=== PATIENT | male | born 1990 | race Caucasian/White ===

== ENCOUNTER 2016-10-03 11:19 | Emergency (ER) | payer SELFPAY ==
[2016-10-03] MEDS ORDERED: FLUORESCEIN SODIUM 1 MG APP OD ONE (11:52)
[2016-10-03] MEDS ORDERED: PROPARACAINE 0.5% OPHTH SOLN 15 ML BOTTLE OD ONE (11:52)
[2016-10-03 11:58] VITALS: BP 130/60; PULSE 88; TEMP 97.5; BMI 22.7
[2016-10-03] MEDS ORDERED: GENTAMICIN 0.3% OPHTH SOLN 5 ML BOTTLE OD ONE (12:33)
--- NOTE | 2016-10-03 12:35 | EDPRACDOC ---
- General Information Chief Complaint: Eye Problems Stated Complaint: foreign body eye Time Seen by Provider: 10/03/16 12:14 Information Source: Patient Mode Of Arrival: Car Home Medications: Home Medications Amoxicillin/Clavulanate Potas. [Augmentin] 875 mg PO BID #20 tab 11/15/14 Hydrocodone Bit/Acetaminophen [Hydrocodon-Acetaminophen 5-325] 1 - 2 tab PO Q6H PRN #20 tab 11/15/14 Hydrocodone Bit/Acetaminophen [Albert Lea 5-325 Tablet] 1 each PO Q4H #20 tab Meloxicam [Mobic] 7.5 mg PO BID #20 tab 10/03/16 Allergies/Adverse Reactions: Allergies Allergy/AdvReac Type Severity Reaction Status Date / Time No Known Allergies Allergy Verified 11/15/14 16:16 - History of Present Illness Onset: yesterday HPI: PT PRESENTS TODAY WITH FB TO RIGHT EYE THAT OCCURRED LAST NIGHT. 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 NO OTHER INJURY. NO FEVER/ DISCHARGE. Foreign Body Context: Reports: Injury Foreign Body: Other (METAL) Location of Possible Foreign Body: EYE Removal: Successful Pain Severity: Moderate Shortness of breath: None Associated Signs & Symptoms: Reports: None ED Past Medical History - History Reviewed Yes Nurses notes reviewed and agree except as marked - Social Medical History Smoking Status: Heavy tobacco smoker (5 or more cigarettes/day or daily pipe/ cigar) EDM Review of Systems - Review of Systems ROS Negative Except as Marked: Yes All systems reviewed and were negative except as marked Constitutional: No Symptoms Reported Eyes: Blurred Vision, Pain, Redness, Other (FB) Ears: No Symptoms Reported Throat: No Symptoms Reported Nose: No Symptoms Reported Respiratory: No Symptoms Reported Cardiovascular: No Symptoms Reported Gastrointestinal: No Symptoms Reported Neurological: No Symptoms Reported Musculoskeletal: No Symptoms Reported Integumentary: No Symptoms Reported - Physical Exam Constitutional: Alert (Awake), No apparent distress Oriented to: Time, Person, Place Last recorded Vital Signs: Last Vital Signs Temp 97.5 F 10/03/16 11:57 Pulse 88 10/03/16 11:57 Resp 18 10/03/16 11:57 BP 130/60 10/03/16 11:57 Pulse Ox 97 10/03/16 11:57 Oxygen Pulse Oxygen Saturation 97 O2 Device Oxygen Flow Rate Fraction of Inspired Oxygen ( FIO2) - HEENT Head: Normal Eye Exam: Other (NOTED METAL PIECE IN CENTER OF RIGHT EYE; PERRL; EOMI;) Oropharynx: Normal Tympanic Membrane: Normal ENT EAC: Normal Nose: No Symptoms Reported Neck: Normal, Denies Pain, Midline - Respiratory/Cardiovascular Respiratory: Normal - CTA Cardiovascular: Normal - GI Palpation: Normal Tenderness: Non tender - Musculoskeletal Back: Normal Extremities: Normal - Integumentary Skin: Normal Lymphatics: Normal - Neurologic Cerebellar: Normal Mood Description: Normal Thought: Coherent Perception: Normal ED Procedures - Foreign Body Removal Informed of risks, benefits and alternatives described: Yes Informed Consent Signed: Verbal Possible Foreign Body Removal from: Other (EYE) Topical Medications: Other (PROPARICAINE) Foreign Body removal attempted using: Manual Extraction Removal Attempt aided by: Other (18 GAUGE NEEDLE) Removal Attempt was: Successfully Removed, FB Indentified Post-procedure exam: Abrasion (CORNEAL ABRASION) Decision Time to Discharge: 12:34 - Departure Disposition: Home Condition: Good Final Diagnosis: Foreign body in eye Qualifiers: Encounter type: initial encounter Laterality: right Qualified Code(s): T15.91XA - Foreign body on external eye, part unspecified, right eye, initial encounter Instructions: Eye Foreign Body (ED) Education/Counseling Given To: Patient, Family Member Education/Counseling Given Regarding: Diagnosis, Treatment, Follow Up Referrals: None,No Provider [Primary Care Provider] - One Week Haris Almonte MD [Staff Physician] - One Week Prescriptions: New Hydrocodone Bit/Acetaminophen [Albert Lea 5-325 Tablet] 1 each PO Q4H #20 tab Meloxicam [Mobic] 7.5 mg PO BID #20 tab No Action Amoxicillin/Clavulanate Potas. [Augmentin] 875 mg PO BID #20 tab Hydrocodone Bit/Acetaminophen [Hydrocodon-Acetaminophen 5-325] 1 - 2 tab PO Q6H PRN #20 tab PRN Reason: Pain Additional Instructions: IF SYMPTOMS PERSIST, FOLLOW UP WITH DR. ALMONTE.
== END 2016-10-03 12:41 | disposition home or self-care (01) ==
LOC: EDMC 11:19
DX: T15.91XA Foreign body on external eye, part unspecified, right eye, initial encounter (principal); X58.XXXA Exposure to other specified factors, initial encounter; Y93.89 Activity, other specified
CPT/HCPCS: 65205; 99282; J3490